=== PATIENT | female | born 1965 | race Two or more races ===

== ENCOUNTER 2018-12-26 17:40 | Emergency (ER) | payer MEDICARE, OTHER ==
[2018-12-26 18:53] LABS: ABS Eosinophils 0.3 10^3/ul (0-0.6); ABS Monocytes 0.7 10^3/ul (0-0.8); ABS Neutrophils 2.6 10^3/ul (1.5-7.7); Eosinophil % 3.5 %; Hematocrit 41 % (35-47); Hemoglobin 13.5 g/dL (12.0-16.0); Lymphocyte % 52.3 %; Mean Corpuscular HGB Conc 33 g/dL (31-36); Mean Corpuscular Hemoglobin 27 pg (27-31); Mean Corpuscular Volume 82 fL (80-97); Mean Platelet Volume 9.6 fL (7.4-10.4); Nucleated Red Blood Cells % 0.2; Platelet Count 205 10^3/uL (150-450); Red Blood Count 5.01 10^6 /uL (3.70-4.87); Red Cell Distribution Width 15 % (10-15); White Blood Count 7.6 10^3/uL (3.5-10.8)
[2018-12-26 19:00] VITALS: BP 153/108
--- NOTE | 2018-12-26 19:00 | ED ---
Complex/Multi-Sys Presentation - HPI Summary HPI Summary: 53-year-old non-Namibian speaking female with a significant past medical history of fibromyalgia, hypertension, type 2 diabetes mellitus, hyperlipidemia presents to the emergency department today complaining of abdominal pain, chest pain, shoulder pain, arm pain, leg pain. She states this is similar to her chronic pain due to her fibromyalgia however it is worse today. She states she takes 5 mg of Percocet, gabapentin daily for her symptoms. She states ambulating or moving increases her pain. She endorses decreased range of motion and strength in her shoulders arms and legs. She denies recent surgery, immobilization, long distance travel. She denies recent steroid use. She denies fever, pain with bowel movements, blood per rectum, pain with urination, abnormal stools, rash, history of trauma, vaginal bleeding or discharge. Her daughters at the bedside to translate - History Of Current Complaint Chief Complaint: EDGeneral Time Seen by Provider: 12/26/18 18:15 Hx Obtained From: Patient, Family/Frame Nailer - Daughter is at the bedside to translate Onset/Duration: Sudden Onset, Gradual Onset Timing: Constant Severity Currently: Moderate Severity Initially: Moderate Location: Pain At: - Diffuse pain throughout her musculoskeletal system and abdomen. Character: Unable To Describe - "Achy" Associated Signs And Symptoms: Positive: Weakness, Abdominal Pain, Back Pain. Negative: Decreased Responsiveness, Agitation, Syncope, Headache, SOB, Cough, Wheezing, Hemoptysis, Chest Pain, Palpitations, Edema, Nausea, Vomiting, Diarrhea, Dysuria, Hematemesis, Melena, Decreased Oral Intake, Fever, Diaphoresis, Immunocompromised, Anticoagulation Therapy, Recent Medication Changes, Indwelling House Detective, Recent Trauma - Allergies/Home Medications Allergies/Adverse Reactions: Allergies Allergy/AdvReac Type Severity Reaction Status Date / Time No Known Allergies Allergy Verified 12/26/18 17:47 Home Medications: Home Medications BuPROPion XL* [Bupropion XL*] 300 mg PO DAILY 12/26/18 [History Confirmed ] Dapagliflozin/Metformin HCl [Xigduo Xr 10-500 mg] 1 tab PO DAILY 12/26/18 [ History Confirmed 12/26/18] Gabapentin TAB(NF) [Neurontin 600 mg TAB(NF)] 600 mg PO TID 12/26/18 [History Confirmed 12/26/18] oxyCODONE/Acetam5/325MG PREPAK [Percocet 5/325 TAB*] 1 tab PO Q6HR PRN 12/26/18 [History Confirmed 12/26/18] PMH/Surg Hx/FS Hx/Imm Hx Endocrine/Hematology History: Reports: Hx Diabetes Cardiovascular History: Reports: Hx Hypertension - in the Musculoskeletal History: Reports: Hx Fibromyalgia Infectious Disease History: No Infectious Disease History: Denies: Traveled Outside the [place] in Last 30 Days Review of Systems Positive: Fatigue Eyes: Negative ENT: Negative Cardiovascular: Negative Respiratory: Negative Positive: Abdominal Pain. Negative: Vomiting, Diarrhea, Nausea Genitourinary: Negative Positive: Arthralgia, Myalgia, Decreased ROM Skin: Negative Neurological: Negative Psychological: Normal All Other Systems Reviewed And Are Negative: Yes Physical Exam - Summary Physical Exam Summary: Patient is non-Namibian speaking and has her daughter at the bedside for translation Triage Information Reviewed: Yes Vital Signs On Initial Exam: Initial Vitals Temp Pulse Resp BP Pulse Ox 98.1 F 85 18 146/83 98 12/26/18 17:41 12/26/18 17:41 12/26/18 17:41 12/26/18 17:41 12/26/18 17:41 Vital Signs Reviewed: Yes Appearance: Positive: Well-Appearing, No Pain Distress, Well-Nourished, Obese Skin: Positive: Warm, Skin Color Reflects Adequate Perfusion Head/Face: Positive: Normal Head/Face Inspection Eyes: Positive: Normal, EOMI ENT: Positive: Hearing grossly normal Neck: Positive: Tenderness @ - Tenderness with palpation of the latissimus dorsi muscles bilaterally as well as the supraspinatus and infraspinatus muscles. No tenderness with palpation of the cervical spine. Respiratory/Lung Sounds: Positive: Clear to Auscultation, Breath Sounds Present Cardiovascular: Positive: RRR, S1, S2 Abdomen Description: Positive: Other: - Patient complains of tenderness with palpation throughout the abdomen. There is no evidence of guarding or rigidity. No peritoneal signs. Negative Rovsing, trigger, Back's, McBurney sign. Negative: Distended, Guarding, McBurney's Point Tenderness Bowel Sounds: Positive: Present Musculoskeletal: Positive: Other - Patient has decreased range of motion in her shoulders due to pain. She complains of "bone pain" throughout her upper and lower extremities shoulders. She is neurovascularly intact and has 5 out of 5 strength. She has diffuse pain throughout her extremities and no specific pain at certain landmarks. Neurological: Positive: Sensory/Motor Intact, Alert, Oriented to Person Place, Time, Facial Symmetry, Speech Normal Psychiatric: Positive: Normal AVPU Assessment: Alert Procedures - Sedation Patient Received Moderate/Deep Sedation with Procedure: No Diagnostics - Vital Signs Vital Signs Temp Pulse Resp BP Pulse Ox 12/26/18 17:41 98.1 F 85 18 146/83 98 - Laboratory Lab Results: Lab Results 12/26/18 Range/Units 18:31 WBC 7.6 (3.5-10.8) 10^3/uL RBC 5.01 H (3.70-4.87) 10^6 /uL Hgb 13.5 (12.0-16.0) g/dL Hct 41 (35-47) % MCV 82 (80-97) fL MCH 27 (27-31) pg MCHC 33 (31-36) g/dL RDW 15 (10-15) % Plt Count 205 (150-450) 10^3/uL MPV 9.6 (7.4-10.4) fL Neut % (Auto) 34.4 % Lymph % (Auto) 52.3 % [place] % (Auto) 9.3 % Eos % (Auto) 3.5 % Baso % (Auto) 0.5 % Absolute Neuts (auto) 2.6 (1.5-7.7) 10^3/ul Absolute Lymphs (auto) 4.0 (1.0-4.8) 10^3/ul Absolute Monos (auto) 0.7 (0-0.8) 10^3/ul Absolute Eos (auto) 0.3 (0-0.6) 10^3/ul Absolute Basos (auto) 0.0 (0-0.2) 10^3/ul Absolute Nucleated RBC 0.0 10^3/ul Nucleated RBC % 0.2 Result Diagrams: 12/26/18 18:31 12/26/18 18:31 Lab Statement: Any lab studies that have been ordered have been reviewed, and results considered in the medical decision making process. Complex Multi-Symp Course/Dx Course Of Treatment: Patient was evaluated in the emergency department today complaining of acute on chronic "body aches" and abdominal pain. The patient was seen and examined. Laboratory studies and an EKG were ordered to investigate possible pathology and to rule out abnormal presentation of myocardial infarction considering the patient's risk factors and complaints of abdominal pain. EKG returned showing normal sinus rhythm at a rate of 79 bpm. There is left axis deviation with no ST elevation or signs of ischemia. There is normal P-R and QTc interval. No evidence of Brugada or WPW.. Laboratory studies returned showing no evidence of anemia, leukocytosis, likely abnormalities, decreased renal or hepatic function. Her alkaline phosphatase is slightly elevated at 106 but this finding is considered benign. Her blood glucose is 89. There is no evidence of acute myocardial infarction, pulmonary embolism, or other life-threatening disease. Due to her negative workup and physical exam it is likely this is an exacerbation of her fibromyalgia and does not require acute medical intervention at this time. She is to follow-up with her primary care provider in one to 2 days for further evaluation of her pain. She was told to return to the emergency department immediately if she developed any new or worsening symptoms. Patient agrees with this plan. - Diagnoses Provider Diagnoses: Pain Discharge ED - Sign-Out/Discharge Documenting (check all that apply): Patient Departure - Discharge Plan Condition: Stable Disposition: HOME Patient Education Materials: Fibromyalgia (ED) Print Language: LAO Referrals: [facility] [Outside] - 2 Days No Primary Care Phys,[facility] [Primary Care Provider] - Additional Instructions: You were seen in the emergency department today due to increased pain from your fibromyalgia. Your evaluation revealed no evidence of acute life-threatening pathology. Please follow-up with your primary care provider or a care [facility] provider on the attached pamphlet for further evaluation and management of your acute on chronic problem. If you develop any new or worsening symptoms please return to emergency department immediately. - Billing Disposition and Condition Condition: STABLE Disposition: Home - Attestation Statements Provider Attestation: I was available for consult. This patient was seen by the [facility]. The patient was not presented to, seen by, or examined by me. Jesus Haq MD
[2018-12-26 19:04] LABS: Albumin 3.6 g/dL (3.2-5.2); Albumin/Globulin Ratio 1.2 (1-3); BUN/Creatinine Ratio 13.6 (8-20); C Reactive Protein 3.6 mg/L (<8.01); Calcium 8.6 mg/dL (8.6-10.3); EGFR African American 81.3 (>60); EGFR Non-African American 67.2 (>60); Globulin 3.1 g/dL (2-4); Potassium 4.1 mmol/L (3.5-5.0); Total Bilirubin 0.7 mg/dL (0.2-1.0); Total Protein 6.7 g/dL (6.4-8.9)
== END 2018-12-26 19:37 | disposition home or self-care (01) ==
LOC: ED 17:40
DX: M79.7 Fibromyalgia (principal); E11.9 Type 2 diabetes mellitus without complications; Z79.84 Long term (current) use of oral hypoglycemic drugs; I10 Essential (primary) hypertension
CPT/HCPCS: 36415; 80053; 84484; 85025; 86140; 93005; 99283

== ENCOUNTER 2020-12-09 08:18 | Observation (INO) ==
[~2020-12-09 08:18] MED LIST: Buffered Lidocaine 1% SYRIN 1 ml INTRADERM ONE; Lactated Ringers 1000 ml BAG 1,000 ML IV SCH
[2020-12-09] MEDS ORDERED: ceFAZolin 2 GM in NS PREMIX 2 GM/100 ML BAG IVPB ONE (08:30)
[2020-12-09] MEDS ORDERED: ROPIVACAINE 5 MG/ML 30 ML BTL (0.5%) ONE (10:54)
[2020-12-09] MEDS ORDERED: Dexamethasone IV 4 MG/ML VIAL 1 ml VIAL ONE ×2 (10:56→10:57)
[2020-12-09] MEDS ORDERED: fentaNYL 100 mcg/2 ml 50 MCG/ML VIAL ONE (10:56)
[2020-12-09] MEDS ORDERED: Midazolam 2 mg/2 ml VIAL 1 mg/ml 2 ml VIAL (2 mg) ONE (10:58)
[2020-12-09] MEDS ORDERED: Propofol 10 MG/ML 20 ML BTL ONE (12:00)
[2020-12-09] MEDS ORDERED: diPHENhydraMINE 25 mg TAB PO PRN (12:17)
[2020-12-09] MEDS ORDERED: Ondansetron ODT 4 mg TAB 4 MG TAB PO PRN (12:17)
[2020-12-09] MEDS ORDERED: Ondansetron 4 mg VIAL 2 MG/ML 2 ml VIAL IV PRN ×2 (12:17→13:08)
[2020-12-09] MEDS ORDERED: Lactulose 30 ml UDC PO PRN (12:17)
[2020-12-09] MEDS ORDERED: Morphine 2 MG/ML SYRINGE IV PRN (12:17)
[2020-12-09] MEDS ORDERED: Magnesium Hydroxide LIQ 30 ML UDC PO PRN (12:17)
[2020-12-09] MEDS ORDERED: diPHENhydraMINE IV 50 MG/ML 1 ml VIAL (BENADRYL) IV PRN (12:17)
[2020-12-09] MEDS ORDERED: Ondansetron 4 mg VIAL 2 MG/ML 2 ml VIAL ONE (12:39)
[2020-12-09] MEDS ORDERED: HYDROmorphone 1 MG/1 ML SYRINGE IV PRN (13:08)
[2020-12-09] MEDS ORDERED: DiMENhydriNATE IV 50 mg/ml 1 ml VIAL IV PUSH PRN (13:08)
[2020-12-09] MEDS ORDERED: fentaNYL 100 mcg/2 ml 50 MCG/ML VIAL IV PRN (13:08)
[2020-12-09] MEDS ORDERED: Acetaminophen IV 1 GM/100ML 100 ML IV ONE ×2 (13:08→14:08)
[2020-12-09] MEDS ORDERED: Naloxone 0.4 mg VIAL 0.4 mg/ml 1 ml VIAL IV PRN (13:08)
[2020-12-09] MEDS ORDERED: Dextrose 50% Syringe 50 ml 25 GM/50 ML SYRINGE IV PUSH PRN (15:26)
[2020-12-09] MEDS: Lactated Ringers 1000 ml BAG 1,000 ML IV SCH (16:00)
[2020-12-09] MEDS: ceFAZolin 1 GM ADVAN 1 GM in NS 0.9% 50 ML 50 ML IVPB SCH (19:40)
[2020-12-09] MEDS: Magnesium Hydroxide LIQ 30 ML UDC PO SCH (19:43)
[2020-12-09] MEDS ORDERED: Senna TAB 8.6 mg TAB PO SCH ×2 (21:00)
[2020-12-10] MEDS: Lactated Ringers 1000 ml BAG 1,000 ML IV SCH (02:28)
[2020-12-10] MEDS: ceFAZolin 1 GM ADVAN 1 GM in NS 0.9% 50 ML 50 ML IVPB SCH ×2 (03:18→11:14)
[2020-12-10 06:41] LABS: Hematocrit 37 % (35-47); Hemoglobin 12.3 g/dL (12.0-16.0); Mean Platelet Volume 10.1 fL (7.4-10.4); Platelet Count 234 10^3/uL (150-450)
[2020-12-10 07:15] LABS: Calcium 8.7 mg/dL (8.6-10.3); Potassium 4.1 mmol/L (3.5-5.0)
[2020-12-10] MEDS: Magnesium Hydroxide LIQ 30 ML UDC PO SCH (08:37)
[2020-12-10] MEDS ORDERED: [UNRECOGNIZED DRUG - MIXTURE] PO SCH (09:00)
[2020-12-10] MEDS ORDERED: Vitamin THERAPEUTIC TAB PO SCH (09:00)
[2020-12-10 11:32] VITALS: BP 112/56
== END 2020-12-10 13:10 | disposition home or self-care (01) ==
LOC: OR 08:18 → SSU 08:18
PROVIDERS: ADMIT Orthopaedic Surgery Adult Reconstructive Orthopaedic Surgery; ATTEND Orthopaedic Surgery Adult Reconstructive Orthopaedic Surgery